=== PATIENT | male | born 1995 | race Caucasian/White ===

== ENCOUNTER 2017-12-09 15:26 | Emergency (ER) | payer OTHER ==
[~2017-12-09] VITALS: Ht 167.6 cm; Wt 54.4 kg
[~2017-12-09 15:26] MED LIST: FLOVENT HFA 4444 MCG INH; PREDNISONE 20 M20 MG PO; VENTOLIN HFA 1818 GM INH
[2017-12-09] MEDS ORDERED: MORPHINE SULFAT15 M3 PO (17:01)
[2017-12-09 17:08] VITALS: BP 114/72
== END 2017-12-09 17:53 | disposition home or self-care (01) ==
LOC: ER 15:26
DX: S82.222A Displaced transverse fracture of shaft of left tibia, initial encounter for closed fracture (principal); J45.909 Unspecified asthma, uncomplicated; W20.8XXA Other cause of strike by thrown, projected or falling object, initial encounter; Y93.89 Activity, other specified; Y92.89 Other specified places as the place of occurrence of the external cause; Y99.8 Other external cause status

== ENCOUNTER 2017-12-11 00:05 | Emergency (ER) | payer OTHER ==
[~2017-12-11] VITALS: Ht 167.6 cm; Wt 54.4 kg
[~2017-12-11 00:05] MED LIST changes: +MORPHINE SULFAT15 M3 PO
[2017-12-11] MEDS ORDERED: TYLENOL EXTRA500 MG PO (00:27)
[2017-12-11 03:00] VITALS: BP 120/69
== END 2017-12-11 03:00 | disposition home or self-care (01) ==
LOC: ER 00:05
DX: S82.202D Unspecified fracture of shaft of left tibia, subsequent encounter for closed fracture with routine healing (principal); X58.XXXD Exposure to other specified factors, subsequent encounter; J45.909 Unspecified asthma, uncomplicated